=== PATIENT | female | born 1970 | race Caucasian/White ===

== ENCOUNTER → 2019-09-15 14:05 | Outpatient (CLI) | payer OTHER, SELFPAY ==
--- NOTE | ~2019-09-15 | MR_ITS ---
EXAMINATION: MR lumbar spine wo con EXAM DATE: 09/15/2019 14:48 INDICATION: Left leg pain. Low back pain. TECHNIQUE: Multi-sequential, multiplanar MR images of the lumbar spine were obtained without contrast . Sagittal T1, T2, T2 fat saturation images. Axial T2 weighted images. There is no prior study for comparison. FINDINGS: There is mild to moderate thoracolumbar levoscoliosis. Mild to moderate disc disease at L4- 5, mild disc disease at the other lumbar levels. The vertebral bodies are aligned in the AP dimension . The conus medullaris terminates at the L1 level and has normal signal intensity and morphology. There are no suspicious marrow signal abnormalities. Paraspinal soft tissue is unremarkable. Level by level evaluation: T12-L1: Disc does not extend beyond the endplate margin. Facet arthropathy: None. Neural foraminal stenosis: No stenosis. Central canal stenosis: No stenosis. L1-L2: Disc does not extend beyond the endplate margin. Facet arthropathy: Mild. Neural foraminal stenosis: No stenosis. Central canal stenosis: No stenosis. L2-L3: There is a mild diffuse disc bulge. Facet arthropathy: Mild. Neural foraminal stenosis: No stenosis. Central canal stenosis: No stenosis. L3-L4: There is a mild diffuse disc bulge. Facet arthropathy: Mild. Neural foraminal stenosis: Mild right. Central canal stenosis: No stenosis. L4-L5: There is a mild to moderate diffuse disc bulge. Facet arthropathy: Mild to moderate. Neural foraminal stenosis: Mild to moderate bilateral. Central canal stenosis: Mild to moderate. L5-S1: Disc does not extend beyond the endplate margin. Facet arthropathy: Mild. Neural foraminal stenosis: No stenosis. Central canal stenosis: No stenosis. IMPRESSION: 1. L4-5 mild to moderate spondylosis. 2. Mild to moderate thoracolumbar levoscoliosis. Reviewed, dictated and finalized at location A.
== END ==
PROVIDERS: Visit Provider Physician Assistant Medical
DX: M79.605 Pain in left leg (principal); M47.896 Other spondylosis, lumbar region
CPT/HCPCS: 72148

== ENCOUNTER → 2019-09-23 15:39 | Outpatient (CLI) | payer OTHER, SELFPAY ==
--- NOTE | ~2019-09-23 | MM_ITS ---
EXAMINATION: MM screening chante BI w juanjo HISTORY: Screening TECHNIQUE: Craniocaudal and mediolateral oblique 3-D tomosynthesis images were obtained and synthetic 2-D images were generated. CAD analysis was submitted and interpreted. COMPARISON: 11/10/2017 BREAST PARENCHYMAL COMPOSITION: There are scattered areas of fibroglandular density. FINDINGS: There is no evidence of suspicious mass, calcification, or architectural distortion to sugg est malignancy in either breast. There has been no suspicious interval change. IMPRESSION: 1. No mammographic evidence of malignancy. 2. Recommend routine screening mammography in one year. BI-RADS Category 1: Negative Reviewed, dictated and finalized at location A.
== END ==
PROVIDERS: Visit Provider Advanced Practice Midwife
DX: Z12.31 Encounter for screening mammogram for malignant neoplasm of breast (principal)
CPT/HCPCS: 77063; 77067

== ENCOUNTER → 2022-03-19 14:04 | Outpatient (CLI) | payer OTHER, SELFPAY ==
--- NOTE | ~2022-03-19 | MR_ITS ---
EXAMINATION: MR lumbar spine wo con DATE: 03/19/2022 14:38 INDICATION: Low back pain radiating down the left leg. TECHNIQUE: Magnetic resonance imaging (MRI) of the lumbar spine was performed without intravenous con trast. Sequences included sagittal T2-weighted FSE, sagittal T2-weighted FS FSE, sagittal T1-weighted FSE, and axial T2-weighted FSE. COMPARISON: Lumbar spine MRI 09/15/2019 FINDINGS: There is 15 degrees levoscoliosis of thoracolumbar spine. Vertebral body heights are normal . There is moderately decreased disc height at L4-L5. The distal spinal cord signal intensity is norm al. The conus medullaris is at L1. The following disc levels are specifically discussed: L1-L2: The disc is bulging. There is mild bilateral facet joint osteoarthritis. There is no neural fo raminal stenosis. There is mild central canal stenosis. L2-L3: The disc is bulging. There is mild bilateral facet joint osteoarthritis. There is mild bilater al neural foraminal stenosis. There is mild central canal stenosis. L3-L4: The disc is bulging. There is mild bilateral facet joint osteoarthritis. There is mild bilater al neural foraminal stenosis. There is mild central canal stenosis. L4-L5: The disc is bulging and has an annular fissure. There is severe bilateral facet joint osteoart hritis. There is mild right and moderate left neural foraminal stenosis. There is mild central canal stenosis. L5-S1: The disc does not extend beyond the endplate margin. There is mild bilateral facet joint osteo arthritis. There is no neural foraminal stenosis. There is no central canal stenosis. IMPRESSION: 1. Moderate lumbar spondylosis, stable from 09/15/2019. 2. Thoracolumbar levoscoliosis. Reviewed, dictated and finalized at location A. SFORMATION ANALYST
== END ==
PROVIDERS: PCP Physician Assistant Medical; Visit Provider Physician Assistant Medical
DX: M54.50 Low back pain, unspecified (principal); M54.16 Radiculopathy, lumbar region; M43.06 Spondylolysis, lumbar region; M41.85 Other forms of scoliosis, thoracolumbar region
CPT/HCPCS: 72148

== ENCOUNTER 2022-05-07 10:39 | Emergency (ER) | payer OTHER, SELFPAY ==
--- NOTE | ~2022-05-07 | US_ITS ---
EXAMINATION: US pelvic complete w TV DATE: 05/07/2022 14:47 INDICATION: Cramping and vaginal bleeding TECHNIQUE: Multiple transabdominal and endovaginal sonographic images of the pelvis were obtained. COMPARISON: None. FINDINGS: The uterus measures 10.7 x 6.8 x 7.7 cm. A 1.7 cm hypoechoic area in the uterine fundus has the appearance of an intramural fibroid. The endometrial complex measures 16 mm. The ovaries are not visualized however no adnexal abnormality is seen. There is an approximately 4.1 x 2.8 x 3.4 cm comp augustus cystic and solid lesion of the cervix. There is no free fluid in the pelvis. IMPRESSION: 1. Complex cystic and solid mass of the cervix measuring up to 4.1 cm which could reflect a complicat ed nabothian cyst or possibly neoplasm. EPOXY FABRICATION SUPERVISOR evaluation is recommended. Reviewed, dictated and finalized at location F. IMPRESSION: 1. Complex cystic and solid mass of the cervix measuring up to 4.1 cm which cou ld reflect a complicated nabothian cyst or possibly neoplasm. EPOXY FABRICATION SUPERVISOR evaluation is recommended.
[2022-05-07 11:11] VITALS: BP 126/70; PULSE 91; RESP 16; TEMP 36.5; O2SAT 99
[2022-05-07 13:12] VITALS: BP 126/73; PULSE 90; RESP 18; TEMP 37.2; O2SAT 100
--- NOTE | 2022-05-07 13:40 | ED.FEMALEGU ---
HPI - Female Genitourinary General Chief complaint: Vaginal Bleeding Stated complaint: cramps, heavy vag bleeding Time Seen by Provider: 05/07/22 13:20 History of Present Illness HPI Narrative: 51-year-old female presents to the emergency room today for complaints of severe lower abdominal cramping and heavy menstrual bleeding. She had been on control up until a few months ago. Her welding machine operator electroslag took her off of her control due to her age. They did lab work after she came off and told her that she was menopausal. But then they checked it 2 weeks later and said that she was not yet menopausal. She had 1 episode of light bleeding for her previous period. With this episode she says that the abdominal cramping started over the weekend and she started having heavy bleeding with clots yesterday. She says that she is soaked through a pad overnight and had to put a towel under her because of the bleeding. Related Data Allergies Allergy/AdvReac Type Severity Reaction Status Date / Time Sulfa (Sulfonamide Allergy Unknown Unknown Verified 05/07/22 13:12 Antibiotics) Review of Systems Review of Systems: CONSTITUTIONAL: Denies fever, chills, or sweats. EYES: Denies visual changes, redness, or discharge. ENT: Denies rhinorrhea, congestion, sore throat, or otalgia. CARDIOVASCULAR: Denies chest pain, palpitations, or edema. RESPIRATORY: Denies cough or dyspnea. GASTROINTESTINAL: Denies abdominal pain, nausea, vomiting, or diarrhea. GENITOURINARY: As per HPI SKIN: Denies rash or itching. MUSCULOSKELETAL: Denies back pain, joint pain, or myalgia. NEUROLOGIC: Denies headache, numbness, dizziness, or weakness. PSYCHIATRIC: Denies anxiety or depression. COUNTS INCLUDE 234 BEDS AT THE [facility] Social History Social History Smoking status: Unknown if ever smoked Alcohol intake: current Alcohol use details: occasional Substance use: never Substance use type: does not use Lack of Transportation: No Lack of Food: Never True Current Housing: I Have Housing Concerned About Future Housing: No Difficulty Paying Gas/Electric Bills: No Difficulty Paying for Meds: No Currently Unemployed: No Education: High School Diploma/GED Difficulty w/ Childcare or Family Care: No Living arrangements: with family Occupation/Education: occupation Gender identity (if verbalized by the patient): Female Sexual Orientation (if Verbalized by the Patient): Straight or Heterosexual Exam Narrative: GENERAL: Well-appearing, well-nourished, and in no acute distress. HEAD: Normocephalic, atraumatic. NECK: Supple. No adenopathy or masses. No carotid bruits or JVD CHEST: Clear to auscultation. No respiratory distress. No wheezes rales or rhonchi HEART: Regular rate and rhythm. No murmur heard. Normal peripheral pulses. ABDOMEN: Soft, nontender, nondistended, normal active bowel sounds. : minimal blood noted in vaginal vault, no clots or hemorrhage, tender with palpation over the uterus. No adenexal tenderness. No CMT EXTREMITIES: Normal range of motion. No edema. SKIN: Warm, dry, no rash. NEURO: No focal deficits. Alert and oriented x3. PSYCH: Normal mood and affect. Course Course Emergency Course: I have discussed US findings with patient regarding the fibroid and the complex cyst at the cervix. She agrees and understands the importance of follow up with MANAGER COLLEGE for this. Vital Signs Vital signs: Vital Signs Temperature 36.5 C 05/07/22 11:11 Pulse Rate 91 05/07/22 11:11 Respiratory Rate 16 05/07/22 11:11 Blood Pressure 126/70 05/07/22 11:11 Pulse Oximetry 99 05/07/22 11:11 Oxygen Delivery Room Air 05/07/22 11:11 Temperature 37.1 C 05/07/22 16:11 Pulse Rate 72 05/07/22 16:11 Respiratory Rate 12 05/07/22 16:11 Blood Pressure 113/69 05/07/22 16:11 Pulse Oximetry 100 05/07/22 16:11 Oxygen Delivery Room Air 05/07/22 11:11 MDM - Female Genitourina
[2022-05-07] MEDS: SODIUM CHLORIDE 0.9% IV 1,000 ML 999 ML IV CONT (14:35)
[2022-05-07] MEDS: KETOROLAC 30 MG/ML VIAL (*BKC) IV PUSH (14:35)
[2022-05-07 14:47] LABS: Basophils Percent Auto 0.5 % (0.2-1.2); Eosinophils Absolute Auto 0.2 K/mm3 (0-0.3); Eosinophils Percent Auto 2.5 % (0-4.4); Hematocrit 44.2 % (37.0-47.0); Hemoglobin 14.6 g/dL (12.0-15.0); Immature Granulocyte Absolute 0.02 K/mm3 (0.00-0.031); Immature Granulocyte Percent A 0.2 % (0-0.5); Lymphocytes Absolute Auto 1.07 K/mm3 (0.9-3.2); Lymphocytes Percent Auto 12.7 % (18.3-44.2); Mean Corpuscular Hemoglobin 31.9 pg (26-34); Mean Corpuscular Volume 96.5 fl (80-100); Monocytes Absolute Auto 0.5 K/mm3 (0.1-0.6); Monocytes Percent Auto 5.8 % (2.6-8.5); Neutrophils Absolute Auto 6.6 K/mm3 (1.3-6.7); Neutrophils Percent Auto 78.3 % (45.5-73.1); Platelet Count Result 273 k/mm3 (150-375); Red Blood Count 4.58 M/mm3 (4.2-5.4); Red Cell Distribution Width 13.1 % (11.5-14.5); White Blood Count 8.4 K/mm3 (4.5-10.0)
[2022-05-07 15:04] LABS: Alanine Aminotransferase 23 U/L (6-35); Albumin Level 4.8 g/dL (3.5-5.1); Alkaline Phosphatase 130 U/L (38-126); Anion Gap 8 mmol/L (8-16); Aspartate Amino Transferase 31 U/L (14-36); Bilirubin,Total 0.6 mg/dL (0.2-1.3); Blood Urea Nitrogen 10 mg/dL (7-17); Calcium 9.4 mg/dL (8.4-10.2); Carbon Dioxide 29 mmol/L (22-30); Chloride 103 mmol/L (98-107); Estimated CRCL calculation 103 ml/min; Estimated Glomerular Filt Rate > 60; Glucose 157 mg/dL (65-110); Potassium 3.7 mmol/L (3.4-5.0); Sodium 140 mmol/L (137-145)
[2022-05-07] MEDS: ONDANSETRON INJ 4 MG/2 ML VIAL IV PUSH (15:21)
[2022-05-07] MEDS: MORPHINE SULFATE (*CRX) 4 MG/ML INJ IV PUSH (15:22)
[2022-05-07 16:11] VITALS: BP 113/69; PULSE 72; RESP 12; TEMP 37.1; O2SAT 100
== END 2022-05-07 16:13 | disposition home or self-care (01) ==
PROVIDERS: Emergency Provider Nurse Practitioner Family; PCP Physician Assistant Medical
DX: N94.6 Dysmenorrhea, unspecified (principal); N93.8 Other specified abnormal uterine and vaginal bleeding; D25.9 Leiomyoma of uterus, unspecified; N88.8 Other specified noninflammatory disorders of cervix uteri
CPT/HCPCS: 36415; 76830; 76856; 80053; 85025; 96361; 96374; 96375; 99284; J1885; J2270; J2405; J7030

== ENCOUNTER 2022-05-16 01:43 | Day surgery (SDC) | payer OTHER, SELFPAY ==
[2022-05-14 10:03] VITALS: BMI 27.5
--- NOTE | 2022-05-14 10:08 | PC.NURSE ---
Report to the Outpatient Waiting Room, entrance under the green pavilion located off [facility], at time 0700 on date 05/16/22. Planned Procedure Time: 0900. Time changes happen often and if your time is changed the preop area will call you the afternoon before. - You and your visitor will be asked to self-screen and do not enter if you have any COVID symptoms. - Only one visitor is requested with a max of two and NO children visitors are allowed at this time. - The patient visitor may be requested to leave or wait in car when not with patient due to distancing restrictions. - A mask is optional within the hospital at this time. Patients may have clear liquids (water, carbonated beverages, clear teas, apple juice) until 3 hours prior to surgery with a maximum of 20 ounces. - No food from midnight until time of surgery Take the following medications with a SIP of water the morning of surgery: PAIN PILL IF NEEDED DO NOT STOP ANY OF YOUR OTHER PRESCRIPTION MEDICATIONS PRIOR TO SURGERY?EXCEPT THE FOLLOWING Medications to discontinue per physician: N/A Date to take last dose: N/A Please no make-up, nail croatian, hairspray, perfume, deodorant, or body powder the day of surgery. No jewelry (including any body piercings) or valuables the day of surgery, leave them at home. Please take a shower or bath the night before, or the morning of, surgery with an antibacterial soap. Wear comfortable, loose fitting clothing. - Jewelry must be removed prior to entering the operating room. Rings and piercings that are not removed may be cut off. - The hospital will not accept responsibility for valuables. - Please leave all valuables, including medications, at home the day of surgery. If you are going home after surgery, a licensed local city driver must drive you home. - NO public transportation without another adult if you receive anesthesia. - We recommend that an adult stay with you for 24 hours following discharge. - We also recommend that you do not drive, make important decision, drink alcoholic beverages, or take any drugs that were not prescribed by your health care provider for at least 24 hours after your discharge time. Follow any additional instructions given to you from your surgeon. If you or anyone in your household have experienced Covid symptoms in the past week, please notify your surgeon or the nurse liaison at the phone number below for possible testing. Telephone instructions given to PT - TREVA RODRIGUEZ and asked if any additional questions and then verbalized understanding. Patient advised to call surgeon office or pre surgery nurse liaison [phone] if any additional questions.
[2022-05-16 07:16] VITALS: BP 111/69; PULSE 84; RESP 18; TEMP 36.3; O2SAT 100
[2022-05-16] MEDS: ACETAMINOPHEN 500 MG TABLET 1000 MG PO (08:05)
[2022-05-16] MEDS: LACTATED RINGERS 1,000 ML 30 ML IV CONT (08:05)
--- NOTE | 2022-05-16 08:41 | P.PNAN_ITS ---
Anes - Initial Pre Proc Eval Procedure: Operation Date: 05/16/22 09:00 Proposed Procedures p Hysteroscopy Dilation and Curettage - Alejandro Garcia MD Date/Time: 05/16/22 08:41 Surgeon: Alejandro Garcia MD Pre Op Diagnosis: post menopausal bleeding Patient Data Age: 51 Gender: F Height: 1.6 m Weight: 70.5 kg Last Vital Signs Temp 36.3 C L 05/16/22 07:16 Pulse 84 05/16/22 07:16 Resp 18 05/16/22 07:16 BP 111/69 05/16/22 07:16 Pulse Ox 100 05/16/22 07:16 O2 Del Method Room Air 05/16/22 07:16 Allergies Allergy/AdvReac Type Severity Reaction Status Date / Time Sulfa (Sulfonamide Allergy Unknown Hives Verified 05/16/22 07:49 Antibiotics) Home Medications Medication Instructions Recorded Confirmed Type hydrocodone 7.5 mg-acetaminophen 1 tablet PO Q6H PRN pain #14 tabs 05/07/2208/02 Rx 325 mg tablet naproxen 500 mg tablet 500 mg PO BID PRN pain #30 tabs 05/07/22 05/16/22 Rx Patient hx anesthesia problems: none Family hx anesthesia problems: none Results Review: All pre-operative results and documents have been reviewed as part of the pre- operative evaluation. [facility] Social History Social History Smoking status: Never smoker Alcohol intake: current Drinks per week: 5 Alcohol use details: occasional Substance use: never Substance use type: does not use Lack of Transportation: No Lack of Food: Never True Current Housing: I Have Housing Concerned About Future Housing: No Difficulty Paying Gas/Electric Bills: No Difficulty Paying for Meds: No Currently Unemployed: No Education: High School Diploma/GED Difficulty w/ Childcare or Family Care: No Living arrangements: with family Occupation/Education: occupation Gender identity (if verbalized by the patient): Female Sexual Orientation (if Verbalized by the Patient): Straight or Heterosexual Spiritual care concerns: No Anes - Eval Final PreProcedure Day of Procedure 05/16/22 08:41 Patient weight: overweight Heart: regular rate and rhythm Lungs: clear to auscultation Airway: Mallampati scale class II Neurological: alert and oriented Last oral intake: >/= 8 hours ASA classification: II Emergent: no Anesthetic plan: proceed Anesthesia type and monitoring: general GIVS and standard monitoring Results Review: All pre-operative results and documents have been reviewed as part of the pre-o perative evaluation. Informed Consent: The patient's anesthetic plan and its attendant risks and benefits were discussed with the patient/family/POA. Questions were solicited and answers provided to the satisfaction of the patient/family/POA.
--- NOTE | 2022-05-16 08:41 | WPDHPUPDATE1 ---
History and Physical Update Update Date/Time: 05/16/22 08:41 History and Physical has been reviewed, including an updated exam of the patient. There are NO changes in the patient's condition. Risks, benefits, and alternatives have been discussed and questions answered. Patient agrees to proceed with procedure.
[2022-05-16] MEDS: LIDO 1%/EPINEPHRINE 1:100,000 50 ML VIAL 10 ML INFILTRATE (09:09)
--- NOTE | 2022-05-16 09:24 | W.PM.PROC2 ---
Procedure Note - Detailed Date of Procedure 05/16/22 Pre-op Diagnosis post menopausal bleeding Post-op Diagnosis Same Procedure Performed Hysteroscopy with uterine curettings Surgeon Alejandro Garcia MD Anesthesia MAC Findings Slightly thickened endometrial cavity. Fibroid impinging on the anterior cavity. No polyps fibroids or abnormal vascularity in the endometrial cavity itself. Description of Procedure Patient prepped and draped in usual manner for this procedure. Cervix was dilated to allow the hysteroscope to be placed which was done without difficulty and findings were noted as above. Curettings were obtained, there was minimal bleeding, and this point the procedure was considered terminated the patient was sent to recovery room in stable condition. Estimated Blood Loss 10 Drains No Packing No Pathology Yes Complications No immediate complications Condition Stable Disposition PACU [facility] Billing Surgery - Charge Forward: Surgery Billing
[2022-05-16 09:30] VITALS: BP 110/39; PULSE 90; RESP 14; O2SAT 98
[2022-05-16] MEDS: oxyCODONE HCL (*CRX) 5 MG TAB IR PO (09:50)
[2022-05-16 10:00] VITALS: BP 119/64; PULSE 76; RESP 16
== END 2022-05-16 10:24 | disposition home or self-care (01) ==
PROVIDERS: PCP Physician Assistant Medical; Visit Provider Obstetrics & Gynecology
PROC: 0U5B8ZZ Destruction of Endometrium, Via Natural or Artificial Opening Endoscopic (ICD-10-PCS; CPT 58563; principal; 2022-05-16 09:00)
DX: N95.0 Postmenopausal bleeding (principal); D25.9 Leiomyoma of uterus, unspecified; N85.8 Other specified noninflammatory disorders of uterus
CPT/HCPCS: 58558; 88305; A9270; J2250; J2704; J3010; J7030; J7120

== ENCOUNTER 2024-10-07 08:09 | Emergency (ER) | payer OTHER, SELFPAY ==
--- OUTSIDE RECORDS SUMMARY | 2024-10-07 08:13 | XMS_ITS | Clinical Summary ---
Author Organization [facility] Address [address] [place] [address] Care Team Providers Care Grinder Name Role Phone Melanie Parra PA-C Primary Care Provider [phone] Social History Tobacco Use Types Packs/Day Years Used Date Smoking Tobacco: Never Assessed Comments Unknown Sex and Gender Information Value Date Recorded Sex Assigned at Not on file Legal Sex Female 8:27 PM CDT Gender Identity Not on file Sexual Orientation Not on file Plan of Treatment Health Maintenance Due Date Last Done Comments Cervical Cancer Screening Pa p Smear (Age 30 to 64) Every 3 Years 1969 Colorectal Cancer Screening Colonoscopy (10 Years) 1969 Annual Physical 1972 Hepatitis C 10/26/1987 DTaP, Tdap and Td Vaccines ( 1 - Tdap) 1988 Hepatitis B Vaccines (1 of 3 - 19+ 3-dose series) 1988 Cervical Cancer Screening Pa p with HPV Testing (Age 30 to 64) Every 5 Years 10/26/1999 Cervical Cancer Screening with HPV 10/26/1999 Mammogram Screening 2009 Pneumococcal Vaccine: 50+ Ye ars (1 of 1 - PCV) 10/26/2019 Zoster Vaccines (1 of 2) 10/26/2019 COVID-19 Vaccine (2023-2 5 season) 2023 Meningococcal B Vaccine Aged Out No l onger eligible based on patient's age to complete this topic Meningococcal Vaccine Aged Out No jennifer swapna eligible based on patient's age to complete this topic RSV Immunizations Under 20 Months Aged Out No longer eligible based on patient's age to complete this topic Insurance Care Teams Grinder Relationship Specialty Start Date End Date Melanie Parra PA-C [address] [place] [address] [address] [place] [address] PCP - General PHYSICIAN OCEANIC SCIENCES PROFESSOR 04/11/22
--- NOTE | 2024-10-07 08:19 | ED_ITS ---
HPI - General Adult General Chief complaint: Dental/Oral Stated complaint: Rash on face/Tooth pain Time Seen by Provider: 10/07/24 08:20 Source: patient, RN notes reviewed and old records reviewed Mode of arrival: ambulatory Limitations: no limitations History of Present Illness HPI narrative: 53-year-old female who presents to [facility] with complaints of red raised rash with burning sensation to rash on right forehead and into her right scalp region for the past 2 days. Patient reports that she is also having dental pain to the right lower dental area from abscess tooth and is taking Amoxicillin prescription from her dentist which she started yesterday with follow up scheduled to extraction. Patient reports no visual changes or any pain or burning to her right eye. MD complaint: rash to forehead and to right side of scalp Onset (ago): day(s) (2) Severity scale (1-10): 5 Quality: burning Treatments prior to arrival: other (taking Amoxicillin for dental abscess) Related Data Allergies Allergy/AdvReac Type Severity Reaction Status Date / Time Sulfa (Sulfonamide Allergy Unknown Hives Verified 10/07/24 08:26 Antibiotics) Review of Systems Review of Systems: CONSTITUTIONAL: Denies fever, chills, or sweats. EYES: Denies visual changes, redness, or discharge. ENT: Denies rhinorrhea, congestion, sore throat, or otalgia. positive for dental pain right lower molar CARDIOVASCULAR: Denies chest pain, palpitations, or edema. RESPIRATORY: Denies cough or dyspnea. GASTROINTESTINAL: Denies abdominal pain, nausea, vomiting, or diarrhea. GENITOURINARY: Denies dysuria or hematuria. SKIN: reports rash to forehead and to right side of scalp with burning pain sensation MUSCULOSKELETAL: Denies back pain, joint pain, or myalgia. NEUROLOGIC: Denies headache, numbness, or weakness. PSYCHIATRIC: Denies anxiety or depression. All systems reviewed & are unremarkable except as noted in HPI and below PMFSH Past Medical History Medical History (Updated 10/07/24 @ 08:53 by Shonda Zayas NP) Screening mammogram, encounter for Surgical History Surgical History (Updated 10/07/24 @ 08:53 by Shonda Zayas NP) History of tonsillectomy and adenoidectomy History of hysteroscopy (05/16/22) Hscope D&C Social History Social History Smoking status: Never smoker Alcohol intake: current Drinks per week: 5 Alcohol use details: occasional Substance use: never Substance use type: does not use Lack of Transportation: No Lack of Food: Never True Current Housing: I Have Housing Concerned About Future Housing: No Difficulty Paying Gas/Electric Bills: No Difficulty Paying for Meds: No Currently Unemployed: No Education: High School Diploma/GED Difficulty w/ Childcare or Family Care: No Living arrangements: with family Additional living arrangements comments: partner Occupation/Education: occupation Additional occupation/education comments: teacher Gender identity (if verbalized by the patient): Female Sexual Orientation (if Verbalized by the Patient): Straight or Heterosexual Spiritual care concerns: No Comments At time of signature, agree with nursing past medical, surgical, social and family history. There is no relevant family history pertinent to the presenting complaint Exam Narrative: GENERAL: Well-appearing, well-nourished, and in no acute distress. HEAD: Normocephalic, atraumatic. EYES: PERRLA and EOMI.denies any visual changes or any pain ENT: Nares clear, no rhinorrhea or epistaxis. Mucous membranes moist. NECK: Supple.no lymphadenopathy CHEST: Clear to auscultation. No respiratory distress. no cough or congestion noted SAO2 100% on room air HEART: Regular rate and rhythm. No murmur heard. Normal peripheral pulses. ABDOMEN: Soft, nontender, nondistended, normal active bowel sounds. EXTREMITIES: Normal range of motion. No edema. SKIN: Warm, dry, red raised rash to right side of forehead and to the right scalp area with burning sensation NEURO: No focal deficits. Alert and oriented x3. Course Course Emergency Course: Patient is aware of diagnosis, understands and agrees to treatment plan.? Anticipatory guidance given.? Patient agrees to follow-up as directed and is aware of reasons to seek care at the emergency department. Portions of this record may have been created with voice recognition software Level of Care: Express Care Visit Vital Signs Vital signs: Reviewed Medical Decision Making MDM Narrative Medical decision making narrative: Exam findings and imaging show no acute concerns or changes; patient is non- toxic appearing and is in no distress.? Patient is appropriate for outpatient treatment and follow-up Medical Records Medical records reviewed: Yes I reviewed the external patient's medical records. Vital Signs Vital Signs: reviewed Critical Care Time Critical Care Time Critical Care Time: No Discharge Plan Discharge Clinical Impression: Shingles Qualifiers: Herpes zoster complications: without complications Qualified Code(s): B02.9 - Zoster without complications Patient Disposition: Home Condition: Stable Instructions: Antibiotic Form, Valacyclovir (By mouth), Shingles (ED) Additional Instructions: Antiviral medication take as prescribed take all doses May use lidocaine ointment to rash Antibiotic as previously prescribed--finish the medication Tylenol or ibuprofen for any fever or pain Follow-up with PCP in 7-10 days or sooner as needed Patient Language: Albanian Prescriptions: New valacyclovir 1 gram tablet 1,000 mg PO Q8H Qty: 21 0RF No Action progesterone micronized [Prometrium] 200 mg capsule 200 mg PO QHS 90 Days Qty: 90 3RF Rx Instructions: off 7 days; repeat cycle Follow-up/Referrals: Melanie Parra PA-C [Primary Care Provider, Family Practice] Stand Alone Forms: Work/School Release IP Time of Disposition: 08:42 Quality Delvin Coma Scale Eyes: Open Verbal: Oriented and Alert Motor: Follows Commands Delvin Coma Total Score: 15
[2024-10-07 08:22] VITALS: BP 120/66; PULSE 76; RESP 18; TEMP 36.8; O2SAT 100
== END 2024-10-07 08:47 | disposition home or self-care (01) ==
PROVIDERS: Emergency Provider Registered Nurse; PCP Physician Assistant Medical
DX: B02.9 Zoster without complications (principal)
CPT/HCPCS: 99213; G0463

== ENCOUNTER 2025-02-09 10:30 | Emergency (ER) | payer OTHER, SELFPAY ==
--- NOTE | 2025-02-09 10:31 | ED_ITS ---
HPI - Female Genitourinary General Chief complaint: Urogenital-Female Stated complaint: UTI Time Seen by Provider: 02/09/25 10:31 Source: patient Mode of arrival: ambulatory Limitations: no limitations History of Present Illness HPI Narrative: Patient is a 54-year-old female that presents With urinary irritation and vaginal itching. Patient has taken Monistat with no improvement so she thinks it is a UTI instead of a yeast infection. Denies any fever, chills, low back pain, nausea, vomiting, diarrhea. MD elicited complaint: dysuria Related Data Allergies Allergy/AdvReac Type Severity Reaction Status Date / Time Sulfa (Sulfonamide Allergy Unknown Hives Verified 02/09/25 10:43 Antibiotics) Review of Systems Review of Systems: All systems reviewed & are unremarkable except as noted in HPI and below Constitutional: Constitutional: Denies chills, Denies fever(s), Denies headache(s), Denies malaise and Denies weakness Eyes: Eyes: Denies change in vision, Denies eye discharge and Denies irritation ENT: Denies otalgia, Denies headache(s), Denies nasal congestion, Denies nasal discharge, Denies sinus pain and Denies sore throat Cardiovascular: Cardiovascular: Denies chest pain, Denies edema, Denies palpitations and Denies dyspnea Respiratory: Respiratory: Denies cough and Denies dyspnea Gastrointestinal: Gastrointestinal: Denies abdominal pain, Denies diarrhea, Denies nausea and Denies vomiting Genitourinary: Genitourinary: Denies hematuria, Denies nocturia, Reports dysuria, Denies flank pain, Denies urinary urgency and Reports vaginal pruritus Musculoskeletal: Musculoskeletal: Denies back pain and Denies numbness Integumentary/Breasts: Skin/Breast: Denies pruritus and Denies rash Neurologic: Denies headache(s), Denies numbness and Denies weakness Psychiatric: Psychiatric: Reports no additional psychiatric complaints Endocrine: Endocrine: Denies palpitations PMFSH Past Medical History Medical History Screening mammogram, encounter for Surgical History Surgical History History of tonsillectomy and adenoidectomy History of hysteroscopy (05/16/22) Hscope D&C Social History Social History Smoking status: Never smoker Alcohol intake: current Drinks per week: 5 Alcohol use details: occasional Substance use: never Substance use type: does not use Lack of Transportation: No Lack of Food: Never True Current Housing: I Have Housing Concerned About Future Housing: No Difficulty Paying Gas/Electric Bills: No Difficulty Paying for Meds: No Currently Unemployed: No Education: High School Diploma/GED Difficulty w/ Childcare or Family Care: No Living arrangements: with family Additional living arrangements comments: partner Occupation/Education: occupation Additional occupation/education comments: teacher Gender identity (if verbalized by the patient): Female Sexual Orientation (if Verbalized by the Patient): Straight or Heterosexual Spiritual care concerns: No Comments At time of signature, agree with nursing past medical, surgical, social and family history. There is no relevant family history pertinent to the presenting complaint. Exam Const: General: cooperative, healthy appearing, comfortable, no acute distress and well nourished Nutritional Appearance: well nourished Orientation/consciousness: patient oriented x3 HENMT: Head: normocephalic and atraumatic Ears: external ears normal Face/Nose/Sinus: Normal external nose present, Normal nares present and normal facial exam Face and sinus: normal facial exam Eyes: General: appearance normal, both eyes and all related structures Pupils: Equal, round and reactive pupils present EOM: EOMs intact bilaterally Neck: Neck: normal visual inspection, full ROM and supple Chest: Chest palpation & inspection: normal inspection of the chest Resp: Effort & Inspection: normal respiratory effort and able to speak in complete sentences Cardio: Rate: regular rate Rhythm: regular rhythm GI: Inspection: normal to inspection GI Palp: No abdominal tenderness and Yes Soft to palpation : General: Yes no CVA tenderness Back/Spine/Pelvis: Back: no CVA tenderness Skin: General skin exam: normal color and no rashes or lesions noted Neuro: General: patient oriented x3 and moves all extremities Cranial nerves: Yes Equal, round and reactive pupils present Extrem: General: normal to inspection and full ROM Psych: Appearance: grossly normal and well kempt Course Course Emergency Course: Patient is aware of diagnosis, understands and agrees to treatment plan. Anticipatory guidance given. Patient agrees to follow-up as directed and is aware of reasons to seek care at the emergency department. Portions of this record may have been created with voice recognition software Level of Care: Express Care Visit Vital Signs Vital signs: Vital Signs Temperature 36.4 C 02/09/25 10:38 Pulse Rate 85 02/09/25 10:38 Respiratory Rate 18 02/09/25 10:38 Blood Pressure 134/79 02/09/25 10:38 Pulse Oximetry 100 02/09/25 10:38 Oxygen Delivery Room Air 02/09/25 10:38 Temperature 36.4 C 02/09/25 10:38 Pulse Rate 85 02/09/25 10:38 Respiratory Rate 18 02/09/25 10:38 Blood Pressure 134/79 02/09/25 10:38 Pulse Oximetry 100 02/09/25 10:38 Oxygen Delivery Room Air 02/09/25 10:38 [facility] Narrative Medical decision making narrative: Based on symptoms and positive point of care UA, patient will be treated with antibiotics. Will also cover for yeast infection Pt well hydrated appearing, in no respiratory distress, hemodynamically stable. Recommend supportive care. The patient is stable at time of discharge the clinical impression was discussed and the patient was given the opportunity to ask questions, which were addressed as completely as possible given the information available at present. Anticipatory guidance and return to care precautions were discussed and the importance of primary care follow-up was stressed and encouraged. The patient voiced understanding of the plan, indications to return, and the need for follow-up. Exam findings show no acute concerns or changes Patient is appropriate for outpatient treatment and follow-up. Differential Diagnosis Differential Diagnosis: Differential diagnostic considerations for female urogenital? issues include urinary tract infection, bacterial vaginosis, cervicitis, ovarian cyst, vaginitis, STI exposure, ovarian torsion, ectopic , cyst of Bartholin?s gland, cystitis, dysmenorrhea.?? Medical Records I have reviewed the following patient records and this information was taken into consideration when formulating the assessment and plan.: previous clinic visits Lab Data [facility] Lab Attestation statement: I personally reviewed the patient's lab results. Labs: Lab Results 02/09/25 Range/Units 10:43 POC Urine Color Yellow POC Urine Clarity Clear POC Urine pH 6.5 POC Ur Specif [place] 1.025 POC Urine Protein Negative (Negative) POC Ur Glucose (UA) Negative (Negative) POC Urine Ketones Negative (Negative) POC Urine Blood Negative (Negative) POC Urine Nitrite Negative (Negative) POC Urine Bilirubin Negative (Negative) POC Urine Urobilinogen 0.2 POC U Leukocyte Esteras Trace (Negative) Discharge Plan Discharge Clinical Impression: Vaginal yeast infection UTI (urinary tract infection) Qualifiers: Urinary tract infection type: acute cystitis Hematuria presence: without hematuria Qualified Code(s): N30.00 - Acute cystitis without hematuria Patient Disposition: Home Condition: Stable Instructions: Urinary Tract Infection in Women (ED), Yeast Infection (ED) Additional Instructions: We will send a urine culture to the lab, based on your symptoms and urine dip we will start treatment today. If culture comes back and bacteria is not susceptible to antibiotic, your prescription may change. Your symptoms should improve within a day of starting antibiotics, but you should finish all the antibiotic pills you get. Otherwise your infection might come back Continue with increased water intake. Take Tylenol or ibuprofen as needed for pain or fever. Follow-up with primary care provider for urine recheck or see ER visit if condition worsens with high fever, nausea, vomiting, severe back pain Take 1 pill today and at end of antibiotics take additional pill. Do not use any scented soaps, tampons or pads. Make sure to always urinate after sex. Use non scented, non flavored condoms. Do not sit and bath with scented soaps or oils. Where cotton underwear and change underwear after exercise. Patient Language: Kuwaiti Prescriptions: New fluconazole 150 mg tablet 150 mg PO ONCE Qty: 2 0RF Rx Instructions: one dose today and the second dose at end of antibiotics nitrofurantoin monohyd/m-cryst 100 mg capsule 100 mg PO Q12H 5 Days Qty: 10 0RF Rx Instructions: must administer with a meal/food Follow-up/Referrals: Melanie Parra PA-C [Primary Care Provider, Family Practice] - 3 Days Stand Alone Forms: Work/School Release IP Time of Disposition: 11:08
[2025-02-09 10:38] VITALS: BP 134/79; PULSE 85; RESP 18; TEMP 36.4; O2SAT 100
--- OUTSIDE RECORDS SUMMARY | 2025-02-09 10:42 | XMS_ITS | Clinical Summary ---
Author Organization [facility] Address [address] [place] [address] Care Team Providers Care Wire Photo Operator News Name Role Phone Melanie Parra PA-C Primary Care Provider [phone] Social History Tobacco Use Types Packs/Day Years [...] Vaccines (1 of 2) 10/26/2019 COVID-19 Vaccine ( - 2024-2 6 season) 2024 Influenza Adult (#1) 2024 Hepatitis A Vaccines Aged Out No long er eligible based on patient's age to complete this topic Meningococcal B Vaccine Aged Out No l onger eligible based on patient's age to complete this topic Meningococcal Vaccine Aged Out No jennifer swapna eligible based on patient's age to complete this topic RSV Immunizations Under 20 Months Aged Out No longer eligible based on patient's age to complete this topic Insurance Care Teams Wire Photo Operator News Relationship Specialty Start Date End Date Melanie Parra PA-C [address] [place] [address] [address] [place] [address] PCP - General PHYSICIAN [employer] 04/11/22
[2025-02-09 10:45] LABS: EDUAAPPEAR Clear; EDUABILI Negative (Negative); EDUABLOOD Negative (Negative); EDUACOLOR1 Yellow; EDUAGLUCOSE Negative (Negative); EDUAKETONE Negative (Negative); EDUALEUKO Trace (Negative); EDUANITRATE Negative (Negative); EDUAPH 6.5; EDUAPROTEIN Negative (Negative); EDUASPGRAVITY 1.025; EDUAUROBILI 0.2
== END 2025-02-09 11:11 | disposition home or self-care (01) ==
PROVIDERS: Emergency Provider Nurse Practitioner Family; PCP Physician Assistant Medical
DX: B37.31 Acute candidiasis of vulva and vagina (principal); N30.00 Acute cystitis without hematuria
CPT/HCPCS: 81003; 87086; 99213; G0463